=== PATIENT | female | born 1995 | race Caucasian/White ===

== ENCOUNTER 2023-11-04 01:33 | Emergency (ER) | payer MEDICAID ==
[~2023-11-04] VITALS: Ht 160 cm; Wt 61.2 kg
[2023-11-04 01:39] VITALS: BP 134/67; TEMP 98.1; O2SAT 98
== END 2023-11-04 03:40 | disposition left against medical advice (07) ==
LOC: ER 01:49
DX: F41.9 Anxiety disorder, unspecified (principal); Z53.21 Procedure and treatment not carried out due to patient leaving prior to being seen by health care provider